=== PATIENT | female | born 1960 | race Caucasian/White ===

== ENCOUNTER 2024-02-05 12:55 | Inpatient (IN) | payer MEDICARE ==
[~2024-02-05] VITALS: Ht 162.6 cm; Wt 59.7 kg
[2024-02-05] VITALS (43 sets, daily range): BP systolic 153–158; BP diastolic 87–95; PULSE 56–62; TEMP 97.3–97.7; O2SAT 93–99
[~2024-02-05 12:55] MED LIST: ALBUTEROL0.83 MG/ML IH; DOXYCYCLINE 10100 MG PO; PREDNISONE20 MG PO
[2024-02-05] MEDS ORDERED: NS 1,000 ML IV ONE (13:00)
[2024-02-05 13:15] LABS: BASO # 0.1 K/mm3 (0.0-0.2); BASO % 0.9 % (0.0-2.0); EOS # 0.1 K/mm3 (0.0-0.7); EOS % 0.7 % (0.0-4.0); GRAN # 4.3 K/mm3 (1.4-6.5); GRAN % 62.2 % (42.2-75.2); HEMATOCRIT 46.4 % (37.0-47.0); HEMOGLOBIN 15.3 g/dl (12.5-16.0); LYMPH # 1.6 K/mm3 (1.2-3.4); LYMPH % 23.5 % (20.0-51.0); MEAN CELL VOLUME 93 fl (80.0-100.0); MEAN CORPUSCULAR HEMOGLOBIN 31 pg (27-31); MEAN CORPUSCULAR HGB CONC 33 g/dl (33.0-37.0); MEAN PLATELET VOLUME 10.2 fl (7.4-10.4); MONO # 0.9 K/mm3 (0.1-0.6); MONO % 12.6 % (1.7-9.3); PLATELET COUNT 211 K/mm3 (130-400); RED BLOOD COUNT 4.99 M/mm3 (4.10-5.30); REDCELL DISTRIBUTION WIDTH-CV 13.3 % (11.5-14.5)
[2024-02-05] MEDS ORDERED: Iohexol 300 - 100 ML VIAL IV ONE (13:18)
[2024-02-05] MEDS ORDERED: NS 100 ML IV SCH (13:18)
[2024-02-05 13:32] LABS: ALANINE AMINOTRANSFERASE 33 U/L (0-55); ALBUMIN 3.8 g/dL (3.4-4.8); ALKALINE PHOSPHATASE 61 U/L (40-150); ANION GAP 13 mmol/L (7-16); AST,SGOT 25 U/L (5-34); BILIRUBIN,TOTAL 0.4 mg/dL (0.2-1.2); BLOOD UREA NITROGEN 15 mg/dL (10-20); CALCIUM 9.8 mg/dL (8.4-10.2); CHLORIDE 104 mEq/L (98-107); CREATININE, serum 0.79 mg/dL (0.57-1.11); GLUCOSE 113 mg/dL (70-99); POTASSIUM 4.1 mEq/L (3.5-4.5); SODIUM 138 mEq/L (136-145); TOTAL PROTEIN 7.8 g/dl (6.2-8.1)
[2024-02-05] MEDS ORDERED: Tenecteplase 50 MG/10 ML VIAL (after reconstitution) IV ONE (13:45)
[2024-02-05 13:53] LABS: TROPONIN-I < 0.010 ng/mL (0.00-0.033)
[2024-02-05] MEDS ORDERED: niCARdipine 200 ML IV ONE (14:15)
[2024-02-05 14:20] LABS: COLLECTION METHOD CATHETER
[2024-02-05 14:24] LABS: PH 6.5 (5.0-8.5); URINE APPEARANCE CLEAR (CLEAR/HAZY); URINE BLOOD NEGATIVE (NEGATIVE); URINE COLOR YELLOW (YELLOW); URINE GLUCOSE NEGATIVE (NEGATIVE); URINE KETONE NEGATIVE (NEGATIVE); URINE NITRATE NEGATIVE (NEGATIVE); URINE PROTEIN(semi-quant) NEGATIVE (NEGATIVE); URINE UROBILINOGEN 0.2 E.U/dL (0.2-1.0)
[2024-02-05 14:34] LABS: TRICYCLIC ANTIDEPRESS URINE NEGATIVE (NEGATIVE)
[2024-02-05] MEDS ORDERED: ARAVA 20MG TABL20 MG PO (14:51)
[2024-02-05] MEDS ORDERED: TENORMIN 2525 MG/TAB PO (14:51)
[2024-02-05] MEDS ORDERED: TRELEGY ELLIPT1 EACH IH (14:51)
[2024-02-05] MEDS ORDERED: PAXIL 20MG20 MG PO (14:51)
[2024-02-05] MEDS ORDERED: NEURONTIN300 MG/CAP PO (14:52)
[2024-02-05] MEDS ORDERED: LIPITOR 40MG TA40 MG PO (14:52)
[2024-02-05] MEDS ORDERED: SINGULAIR 110 MG/TAB PO (14:52)
[2024-02-05] MEDS ORDERED: HUMIRA PEN40 MG/0.4 SQ (14:53)
[2024-02-05] MEDS ORDERED: TENORMIN 5050 MG/TAB PO (14:53)
[2024-02-05] MEDS ORDERED: DESYREL 50MG50 MG PO (14:54)
[2024-02-05] MEDS ORDERED: PROAIR HFA0.09 MG/AC IH (14:54)
[2024-02-05] MEDS ORDERED: QVAR REDIHALE10.6 G1 IH (14:54)
[2024-02-05] MEDS ORDERED: AIRSUPRA INH (14:56)
[2024-02-05] MEDS ORDERED: CALCIUM 600600 MG PO (15:05)
[2024-02-05] MEDS ORDERED: ASPIRIN E.C. 8181 MG PO (15:06)
[2024-02-05] MEDS ORDERED: MASON NATURAL2000 IU PO (15:06)
[2024-02-05] MEDS ORDERED: Dextrose 50% Water 25 GM/50 ML SYRINGE IV PRN ×2 (15:30→16:00)
[2024-02-05] MEDS ORDERED: Sennosides/Docusate 8.6-50 MG TAB PO PRN (15:30)
[2024-02-05] MEDS ORDERED: Docusate Sodium 100 MG CAP PO PRN (15:30)
[2024-02-05] MEDS ORDERED: Acetaminophen 325 MG TAB PO PRN (15:30)
[2024-02-05] MEDS ORDERED: NS 1,000 ML IV SCH (15:45)
--- NOTE | 2024-02-05 15:45 | NUR ---
Patient arrived to unit from ER. Alert and oriented X 4 and in no distress. VS WNL. Patient reports significant improvement in initial symptoms. Still has residual tingling in left hand and slight weakness on left arm and leg. However, patient also states she has some residual weakness on the left side from her previous stroke. Hospitalist notified of arrival. Call light left within reach.
[2024-02-05] MEDS ORDERED: Dextrose (Glucose) 15 GM (4 x 3.75 GM) Chewable TABLET PACK PO PRN (16:00)
[2024-02-05] MEDS ORDERED: Glucagon 1 MG VIAL IM PRN (16:00)
[2024-02-05] MEDS ORDERED: Insulin Lispro (HumaLOG) SQ SCH (17:00)
[2024-02-05] MEDS ORDERED: Budesonide Neb Susp 0.5 MG/2 ML AMP IH SCH (19:00)
[2024-02-05] MEDS ORDERED: Gabapentin 300 MG CAP PO SCH (20:30)
[2024-02-05] MEDS ORDERED: Calcium Carbonate 500 MG TAB PO SCH (21:00)
[2024-02-05] MEDS ORDERED: Atorvastatin 40 MG TAB PO SCH (21:00)
--- NOTE | 2024-02-05 22:42 | NUR ---
PATIENT CURRENTLY LAYING IN BED, ALERT AND ORIENTED X3. CARSON CATHETER IN PLACE AND DRAINING WELL. PERIPHERAL IV'S IN BILATERAL WRISTS WITH GTT INFUSING. SPOUSE AT BEDSIDE. NO ACUTE EVENTS. CALL LIGHT WITHIN REACH.
[2024-02-06] VITALS (233 sets, daily range): BP systolic 103–203; BP diastolic 60–104; PULSE 50–69; TEMP 97.4–98.5; O2SAT 89–99
[2024-02-06 04:48] LABS: BASO # 0.1 K/mm3 (0.0-0.2); BASO % 0.9 % (0.0-2.0); EOS # 0.2 K/mm3 (0.0-0.7); EOS % 2.6 % (0.0-4.0); GRAN # 3.2 K/mm3 (1.4-6.5); GRAN % 47.5 % (42.2-75.2); HEMATOCRIT 39.5 % (37.0-47.0); LYMPH # 2.4 K/mm3 (1.2-3.4); LYMPH % 35.6 % (20.0-51.0); MEAN CELL VOLUME 92 fl (80.0-100.0); MEAN CORPUSCULAR HEMOGLOBIN 31 pg (27-31); MEAN CORPUSCULAR HGB CONC 34 g/dl (33.0-37.0); MEAN PLATELET VOLUME 10.5 fl (7.4-10.4); MONO # 0.9 K/mm3 (0.1-0.6); MONO % 13.2 % (1.7-9.3); PLATELET COUNT 187 K/mm3 (130-400); RED BLOOD COUNT 4.29 M/mm3 (4.10-5.30); REDCELL DISTRIBUTION WIDTH-CV 13.4 % (11.5-14.5)
[2024-02-06 04:58] LABS: HEMOGLOBIN 13.3 g/dl (12.5-16.0)
[2024-02-06 05:04] LABS: CALCIUM 8.6 mg/dL (8.4-10.2); CREATININE, serum 0.73 mg/dL (0.57-1.11); POTASSIUM 4.4 mEq/L (3.5-4.5)
[2024-02-06 05:25] LABS: MAGNESIUM 1.8 mg/dL (1.6-2.6); TSH w REFLEX 3.951 uIU/mL (0.350-4.940)
[2024-02-06 05:28] LABS: CHOLESTEROL RISK RATIO 3.8
--- NOTE | 2024-02-06 07:50 | NUR ---
Patient alert and oriented. No complaints of pain at this time. Assisted patient in wheelchair to be taken to MRI. Patient was steady on her feet. VSS.
[2024-02-06] MEDS ORDERED: Gadoterate 15 ML VIAL IV ONE (07:57)
[2024-02-06] MEDS ORDERED: Famotidine 20 MG TAB PO SCH (09:00)
[2024-02-06] MEDS ORDERED: Montelukast 10 MG TAB PO SCH (09:00)
[2024-02-06] MEDS ORDERED: PARoxetine HCL 10 MG TABLET PO SCH (09:00)
[2024-02-06] MEDS ORDERED: Fluticasone/Umeclidinium/Vilanterol **** subs to Budesonide + Umeclid/Vilant IH SCH (09:00)
[2024-02-06] MEDS ORDERED: Influenza Virus Vaccine, Trivalent '24-25 0.5 ML SYRINGE IM SCH (09:00)
[2024-02-06] MEDS ORDERED: Umeclidinium/Vilanterol 62.5-25 MCG INHALATION/INHALER IH SCH (09:00)
[2024-02-06] MEDS ORDERED: Cholecalciferol (Vit D3) 25 MCG (1,000 Units) TAB PO SCH (09:00)
--- NOTE | 2024-02-06 09:50 | NUR ---
Initial visit; Patient was happy to see Gas Flow Regulator who made her laugh and she wanted Gas Flow Regulator to place her on Gas Flow Regulator's prayer list for healing. Gas Flow Regulator will do so.
[2024-02-06] MEDS ORDERED: LR 1,000 ML IV SCH (12:00)
[2024-02-06] MEDS ORDERED: amLODIPine 5 MG TAB PO SCH (12:45)
[2024-02-06] MEDS ORDERED: Lidocaine PF 2% (20 MG/ML) 5 ML VIAL ONE (13:43)
--- NOTE | 2024-02-06 13:51 | NUR ---
Customer Engineer met with patient and her significant other, Kaushal (ph#[phone]) to discuss discharge planning. Patient lives in [place] with Kaushal and his daughter, Haley. Patient sees Dr. Yoon for primary care and gets medications from [facility] on [address]. Patient reported she has [employer] and Medicaid. Patient has a walker and cane, but has not recently needed them. Patient is normally independent with ADLS and plans to return home at time of discharge. Patient works registered nurse post partum at [employer] and has no issues with driving. Patient stated Kaushal and her sister, Veronica Pavon are her DPOA-HC. SW encouraged patient to have a copy brought in to include in her chart. Discharge Plan: Home
--- NOTE | 2024-02-06 20:00 | NUR ---
Pt resting comfortably in bed. VSS. IV INT with no medications infusing. Pt alert and oriented X4. Pt not displaying residual symptoms of current stroke occurance. Pt denies pain or discomfort at this time. Evening assessment completed without difficulty. Evening medications administered without difficulty. Pt has left sided weakness and unequal hand grasp from previous stroke episode. Pt denies questions or concerns at this time.
[2024-02-06] MEDS ORDERED: traZODone 50 MG TAB PO SCH (21:00)
[2024-02-07] VITALS (41 sets, daily range): BP systolic 136–143; BP diastolic 68–92; PULSE 55–70; TEMP 98–98.2; O2SAT 92–97
[2024-02-07 05:24] LABS: BASO # 0.1 K/mm3 (0.0-0.2); EOS # 0.2 K/mm3 (0.0-0.7); EOS % 2.9 % (0.0-4.0); GRAN # 3.8 K/mm3 (1.4-6.5); GRAN % 53.9 % (42.2-75.2); HEMATOCRIT 40.8 % (37.0-47.0); HEMOGLOBIN 13.8 g/dl (12.5-16.0); LYMPH # 2.2 K/mm3 (1.2-3.4); LYMPH % 30.8 % (20.0-51.0); MEAN CELL VOLUME 91 fl (80.0-100.0); MEAN CORPUSCULAR HEMOGLOBIN 31 pg (27-31); MEAN CORPUSCULAR HGB CONC 34 g/dl (33.0-37.0); MEAN PLATELET VOLUME 10.5 fl (7.4-10.4); MONO # 0.8 K/mm3 (0.1-0.6); MONO % 11.3 % (1.7-9.3); PLATELET COUNT 198 K/mm3 (130-400); REDCELL DISTRIBUTION WIDTH-CV 13.3 % (11.5-14.5)
[2024-02-07 05:40] LABS: CALCIUM 8.9 mg/dL (8.4-10.2); CREATININE, serum 0.79 mg/dL (0.57-1.11)
--- NOTE | 2024-02-07 07:00 | NUR ---
REPORT RECEIVED FROM NAZARIO ARAMBULA. PT RESTING IN BED, VSS ON ROOM AIR. NO DRIPS INFUSING AT THIS TIME. NEURO CHECK WNL, PT DENIES PAIN. PT IS ALERT AND ORIENTED, CALL LIGHT IN REACH.
[2024-02-07] MEDS ORDERED: LIPITOR 80MG80 MG PO (07:47)
[2024-02-07] MEDS ORDERED: PLAVIX 75MG TAB75 MG PO (07:48)
[2024-02-07] MEDS ORDERED: NORVASC 5MG5 MG/TAB PO (08:52)
[2024-02-07] MEDS ORDERED: Clopidogrel 75 MG TAB PO SCH (09:00)
--- NOTE | 2024-02-07 11:57 | NUR ---
PT STABLE THROUGHOUT MORNING, VSS, NEURO CHECKS WNL. DISCHARGE PACKET REVIEWED W/ PT INCLUDING HOLTER MONITOR APPT 02/11 AND NEW MED INFORMATION REVIEWED. PT VERABLIZED UNDERSTANDING. PT DISCHARGED AMBULATORY TO HOME W/ AT 1116.
== END 2024-02-07 11:16 | disposition home or self-care (01) | DRG 62 ==
LOC: COL.ER 12:55 → ICU 14:18
PROVIDERS: Emergency Medicine; ADMIT Internal Medicine
DX: G45.9 Transient cerebral ischemic attack, unspecified (principal); G81.94 Hemiplegia, unspecified affecting left nondominant side; I16.1 Hypertensive emergency; J98.4 Other disorders of lung; R29.706 NIHSS score 6; Z96.653 Presence of artificial knee joint, bilateral; M06.9 Rheumatoid arthritis, unspecified; I10 Essential (primary) hypertension; F41.9 Anxiety disorder, unspecified; F32.A Depression, unspecified; Z88.2 Allergy status to sulfonamides; Z88.8 Allergy status to other drugs, medicaments and biological substances; Z90.710 Acquired absence of both cervix and uterus; Z79.899 Other long term (current) drug therapy; Z72.0 Tobacco use; Z90.49 Acquired absence of other specified parts of digestive tract; Z79.82 Long term (current) use of aspirin; R29.810 Facial weakness; R47.81 Slurred speech; G25.81 Restless legs syndrome; Z79.51 Long term (current) use of inhaled steroids
CPT/HCPCS: A4314; A9575; J1920; J2704; J3101; J7030; Q3014; Q9967

== ENCOUNTER → 2024-02-12 | Outpatient (CLI) | payer MEDICARE ==
[~2024-02-12] MED LIST changes: +AIRSUPRA INH; +ARAVA 20MG TABL20 MG PO; +ASPIRIN E.C. 8181 MG PO; +CALCIUM 600600 MG PO; +DESYREL 50MG50 MG PO; +HUMIRA PEN40 MG/0.4 SQ; +LIPITOR 40MG TA40 MG PO; +LIPITOR 80MG80 MG PO; +MASON NATURAL2000 IU PO; +NEURONTIN300 MG/CAP PO; +NORVASC 5MG5 MG/TAB PO; +PAXIL 20MG20 MG PO; +PLAVIX 75MG TAB75 MG PO; +PROAIR HFA0.09 MG/AC IH; +QVAR REDIHALE10.6 G1 IH; +SINGULAIR 110 MG/TAB PO; +TENORMIN 2525 MG/TAB PO; +TENORMIN 5050 MG/TAB PO; +TRELEGY ELLIPT1 EACH IH
== END ==
LOC: COL.CARD 09:34
DX: R55 Syncope and collapse (principal)